=== PATIENT | male | born 1980 | race Caucasian/White ===

== ENCOUNTER 2016-12-26 21:38 | Observation (INO) ==
[2016-12-26] MEDS ORDERED: 0.9 % Sodium Chloride 1,000 ML IVC ONE (23:25)
[2016-12-26] MEDS ORDERED: 0.9 % Sodium Chloride 1,000 ML ONE (23:27)
[2016-12-26 23:52] LABS: Basophils # 0.1 K/mcL (0.0-0.2); Basophils % 0.9 %; Eosinophils # 0.1 K/mcL (0.0-0.6); Eosinophils % 0.8 %; Hematocrit 51.8 % (37.5-50.1); Hemoglobin 17.9 g/dL (12.9-16.9); Immature Granulocytes % 0.2 % (0-4); Lymphocytes # 3.7 K/mcL (0.6-4.6); Lymphocytes % 27.4 %; Mean Corpuscular HGB Conc 34.6 g/dL (31.6-35.5); Mean Corpuscular Hemoglobin 29.6 pg (28.0-33.3); Mean Corpuscular Volume 85.8 fL (83.0-100.0); Mean Platelet Volume 10.1 fL (9.4-12.4); Monocytes # 1.3 K/mcL (0.0-1.3); Monocytes % 9.4 %; Neutrophils # 8.2 K/mcL (1.6-8.9); Platelet Count 305 K/mcL (140-400); Red Blood Count 6.04 M/mcL (4.19-5.50); Red Cell Distribution Width 14.2 % (11.5-14.5); Segmented Neutrophils % 61.3 %
[2016-12-26 23:58] LABS: INR 1.1; Prothrombin Time 12.4 Seconds (9.4-12.1)
[2016-12-27 00:07] LABS: Alanine Aminotransferase 13 Units/L (0-55); Albumin 5.2 g/dL (3.5-5.0); Albumin/Globulin Ratio 1.4 (1.1-2.2); Alkaline Phosphatase 64 Units/L (38-126); Aspartate Amino Transferase 17 Units/L (5-34); BUN/Creatinine Ratio 13 (6-26); Bilirubin,Direct 0.3 mg/dL (0.0-0.5); Bilirubin,Indirect 0.4 mg/dL (0.0-1.2); Bilirubin,Total 0.7 mg/dL (0.2-1.2); Blood Urea Nitrogen 29 mg/dL (8-26); Calcium 11.1 mg/dL (8.6-10.8); Carbon Dioxide 24 mEq/L (19-29); Chloride 100 mEq/L (98-109); Creatine Kinase 127 Units/L (30-200); Globulin 3.7 g/dL (2.4-3.5); Glucose 89 mg/dL (70-99); Osmolality,Calculated 297 (280-300); Potassium 4.4 mEq/L (3.5-4.5); Sodium 141 mEq/L (136-145); Total Protein 8.9 g/dL (6.0-8.3); eGFR For African Americans 42 (> 60); eGFR For Non-African Americans 35 (> 60)
[2016-12-27] MEDS ORDERED: 0.9 % Sodium Chloride 1,000 ML IVC ONE (00:48)
[2016-12-27 01:03] LABS: Ethanol < 10 mg/dL (0-10)
[2016-12-27] MEDS ORDERED: *HR* LORazepam 2 MG/ML VIAL IVP ONE (01:21)
--- NOTE | 2016-12-27 02:13 | Emergency Department Note ---
Disposition Clinical Impression: ELIESER (acute kidney injury), Visual disturbance Altered mental status Qualifiers: Altered mental status type: unspecified Qualified Code(s): R41.82 - Altered mental status, unspecified Disposition: Admitted As Inpatient Condition: Fair General Adult HPI - General Chief complaint: ED Altered Mental Status Stated complaint: "disoriented and dehydrated" Time Seen by Provider: 12/26/16 22:57 Source: patient, family Limitations: no limitations Nursing Notes Reviewed: Yes Vital Signs Reviewed: Yes - History of Present Illness HPI Narrative: Patient presents with father for evaluation of decreased oral intake, decreased urinary output, dehydration, blurry vision. The patient is rather agitated and is upset because he was at another emergency department where the long wait caused him to leave without being seen. Patient's overall symptoms have been going on for some time and they are now concerned as his vision issues have not gotten any better during this amount of observation. His biggest concern is that she feels like he cannot see secondary to blurry vision. Patient is able to read fingers and arms length away without visual field deficit. Patient does have problems focusing his eyes on any one thing or a decent amount of time. His eyes are bloodshot without other abnormality. Patient denies any psychiatric history. Denies any recreational drug use. He says that he has felt like eating or drinking and has had intermittent stomach problems but has not had any current abdominal pain. States that he has not urinated in 3 days. Pain Scale: 0 - Related Data Previous Rx's Medication Instructions Recorded HYDROcodone/Acet 5/325 mg [[place] 1 tab PO Q6H PRN #10 tab 07/03/15 5-325 mg] Famotidine [Pepcid] 20 mg PO BID 30 Days 03/01/16 Sucralfate [Carafate] 1 gm PO QIDAC 30 Days 03/01/16 Allergies Allergy/AdvReac Type Severity Reaction Status Date / Time No Known Allergies Allergy Verified 07/03/15 10:25 Review of Systems: CONSTITUTIONAL: No weight loss, fever, chills, weakness or fatigue. HEENT: Eyes: Revision inability to concentrate Ears, Nose, Throat: No hearing loss, difficulty talking or unable to swallow. SKIN: No rash or itching. CARDIOVASCULAR: No chest pain, chest pressure or chest discomfort. No palpitations or edema. RESPIRATORY: No shortness of breath, cough or sputum. GASTROINTESTINAL: Decreased appetite over the last several days GENITOURINARY: No burning on urination or hematuria. NEUROLOGICAL: Blurry vision, inability to concentrate, MUSCULOSKELETAL: No muscle pain, back pain, joint pain or stiffness. Past Medical History - Past Medical History Medical history: Reports: GERD Psychiatric history: Reports: no psych history - Social History Smoking Status: Current every day smoker Smokeless Tobacco Status: No Alcohol use: Reports: none Drug use: Reports: marijuana Physical Exam General appearance: NAD, conversant Eyes: anicteric sclerae, moist conjunctivae; PERRL HENT: Atraumatic; oropharynx clear with moist mucous membranes and no mucosal ulcerations Neck: Normal inspection; Trachea midline; FROM, supple Lungs: CTA, with normal respiratory effort and no intercostal retractions CV: RRR, no MRGs Abdomen: Soft, non-tender; no rebound or gaurding Extremities: No peripheral edema or extremity lymphadenopathy Skin: Normal temperature; no rash, ulcers or lesions Psych: Flat affect with inability to focus eyes on one thing Neuro: alert and oriented to person, place and time - General Limitations: no limitations General appearance: alert, in no apparent distress - Expanded Neurological Exam Patient oriented to: Present: person, place, time Speech: Present: fluid speech Cranial nerves: EOM function (II, III, IV, ): Normal ( no specific deficit but unable to focus attention), facial sensation (V): Normal, facial palsy (VII) : Normal, gag reflex (IX): Normal, spinal accessory function (XI): Normal, tongue deviation (XII): Normal Cerebellar function: finger to nose: Normal, heel to napier: Normal Cerebellar function: normal gait Motor strength - LUE: 5/5 Motor strength - RUE: 5/5 Motor strength - LLE: 5/5 Motor strength - RLE: 5/5 Sensory exam upper extremity: light touch: Normal Sensory exam lower extremity: light touch: Normal Coma Scale Eye Opening: Spontaneous Coma Scale Motor Response: Obeys Commands Coma Scale Verbal Response: Oriented Coma Scale Total: 15 Course - Reevaluation(s) Reevaluation #1: Patient resting comfortably after Ativan given. Patient with acute kidney injury. He has received several liters of fluid and been unable to give us a urine sample at this point. CT scan shows mild urinary retention. Patient will need admitted for further evaluation and treatment. Vital Signs Temperature 97.8 F 12/26/16 21:54 Pulse Rate 93 12/26/16 21:54 Respiratory Rate 16 12/26/16 21:54 Blood Pressure 117/84 12/26/16 21:54 O2 Sat by Pulse Oximetry 99 12/26/16 21:54 Temperature 97.5 F L 12/27/16 05:04 Pulse Rate 82 12/27/16 05:04 Respiratory Rate 18 12/27/16 05:04 Blood Pressure 100/62 12/27/16 05:04 O2 Sat by Pulse Oximetry 97 12/27/16 05:04 Oxygen Delivery Oxygen Delivery Room Air Medical Decision Making - Medical Records Medical records reviewed: Yes I reviewed the patient's medical records. - Lab Data Lab results reviewed: Yes I reviewed the patient's lab results. Result diagrams: 12/26/16 23:43 12/26/16 23:43 Lab Results 12/26/16 12/26/16 12/26/16 Range/Units 23:43 23:43 23:43 WBC 13.3 H (4.3-11.1) K/mcL RBC 6.04 H (4.19-5.50) M/mcL Hgb 17.9 H (12.9-16.9) g/dL Hct 51.8 H (37.5-50.1) % MCV 85.8 (83.0-100.0) fL MCH 29.6 (28.0-33.3) pg MCHC 34.6 (31.6-35.5) g/dL RDW 14.2 (11.5-14.5) % Plt Count 305 (140-400) K/mcL MPV 10.1 (9.4-12.4) fL Immature Gran % 0.2 (0-4) % Seg Neutrophils % 61.3 % Lymphocytes % 27.4 % Monocytes % 9.4 % Eosinophils % 0.8 % Basophils % 0.9 % Neutrophils # 8.2 (1.6-8.9) K/mcL Lymphocytes # 3.7 (0.6-4.6) K/mcL Monocytes # 1.3 (0.0-1.3) K/mcL Eosinophils # 0.1 (0.0-0.6) K/mcL Basophils # 0.1 (0.0-0.2) K/mcL PT 12.4 H (9.4-12.1) Seconds INR 1.1 Sodium 141 (136-145) mEq/L Potassium 4.4 (3.5-4.5) mEq/L Chloride 100 (98-109) mEq/L Carbon Dioxide 24 (19-29) mEq/L BUN 29 H (8-26) mg/dL Creatinine 2.19 H (0.72-1.25) mg/dL Est GFR ( Amer) 42 L (> 60) Est GFR (Non-Af Amer) 35 L (> 60) BUN/Creatinine Ratio 13 (6-26) Glucose 89 (70-99) mg/dL POC Glucose (58-89) Calculated Osmolality 297 (280-300) Calcium 11.1 H (8.6-10.8) mg/dL Total Bilirubin 0.7 (0.2-1.2) mg/dL Direct Bilirubin 0.3 (0.0-0.5) mg/dL Indirect Bilirubin 0.4 (0.0-1.2) mg/dL AST 17 (5-34) Units/L ALT 13 (0-55) Units/L Alkaline Phosphatase 64 (38-126) Units/L Creatine Kinase 127 (30-200) Units/L Troponin I (0-0.03) ng/mL Serum Total Protein 8.9 H (6.0-8.3) g/dL Albumin 5.2 H (3.5-5.0) g/dL Globulin 3.7 H (2.4-3.5) g/dL Albumin/Globulin Ratio 1.4 (1.1-2.2) Ethyl Alcohol < 10 (0-10) mg/dL 12/26/16 12/27/16 Range/Units 23:43 00:04 WBC (4.3-11.1) K/mcL RBC (4.19-5.50) M/mcL Hgb (12.9-16.9) g/dL Hct (37.5-50.1) % MCV (83.0-100.0) fL MCH (28.0-33.3) pg MCHC (31.6-35.5) g/dL RDW (11.5-14.5) % Plt Count (140-400) K/mcL MPV (9.4-12.4) fL Immature Gran % (0-4) % Seg Neutrophils % % Lymphocytes % % Monocytes % % Eosinophils % % Basophils % % Neutrophils # (1.6-8.9) K/mcL Lymphocytes # (0.6-4.6) K/mcL Monocytes # (0.0-1.3) K/mcL Eosinophils # (0.0-0.6) K/mcL Basophils # (0.0-0.2) K/mcL PT (9.4-12.1) Seconds INR Sodium (136-145) mEq/L Potassium (3.5-4.5) mEq/L Chloride (98-109) mEq/L Carbon Dioxide (19-29) mEq/L BUN (8-26) mg/dL Creatinine (0.72-1.25) mg/dL Est GFR ( Amer) (> 60) Est GFR (Non-Af Amer) (> 60) BUN/Creatinine Ratio (6-26) Glucose (70-99) mg/dL POC Glucose 82 (58-89) Calculated Osmolality (280-300) Calcium (8.6-10.8) mg/dL Total Bilirubin (0.2-1.2) mg/dL Direct Bilirubin (0.0-0.5) mg/dL Indirect Bilirubin (0.0-1.2) mg/dL AST (5-34) Units/L ALT (0-55) Units/L Alkaline Phosphatase (38-126) Units/L Creatine Kinase (30-200) Units/L Troponin I 0.01 (0-0.03) ng/mL Serum Total Protein (6.0-8.3) g/dL Albumin (3.5-5.0) g/dL Globulin (2.4-3.5) g/dL Albumin/Globulin Ratio (1.1-2.2) Ethyl Alcohol (0-10) mg/dL - Radiology Data Radiology results reviewed: Yes I reviewed the patient's radiology results. - EKG Data EKG #1 EKG attestation: Yes I reviewed and interpreted this EKG. EKG results narrative: EKG shows sinus rhythm with ventricular rate of 67 bpm. LA interval 129. QRS 94. QTC 406. Patient has no significant ST elevations or depressions. Patient 's previous EKG without significant change at 02/29/16. Attestation Statement - Attestation Attestation: I, Ortiz Rene MD, personally evaluated this patient and discussed their management with the resident physician. I reviewed the resident's note and agree with the documented findings, medical decision making, and plan of care. 36-year-old male presents to the emergency department with a complaint of abdominal pain which has been going on for several months. He has had nausea and anorexia and weight loss. Patient reports that over the past several days he has had dizziness and generalized weakness. 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 He states that it was his first day on the job and he thinks that the catheter prior to him. Father reports that he has been acting strange and seems confused and disoriented. Patient reports that he has not urinated in the past 3 days. He has been vomiting and not keeping anything down. On examination patient is a well-developed thin male in no acute distress. He is alert and answers questions appropriately. Patient appears to be having visual hallucinations during my examination. He is very anxious. Mucous membranes are dry. Neck is supple with full range of motion. Breath sounds are clear and equal bilaterally. Heart regular rate and rhythm. Abdomen is soft with mild diffuse tenderness. Normal bowel sounds. No guarding or rebound tenderness. No CVA tenderness. No gross focal neurological deficits. Labs reviewed. Patient noted to have acute kidney injury with creatinine of 2.19. EKG shows a normal sinus rhythm with sinus arrhythmia, no acute ischemic changes. Chest x-ray negative. Head CT negative. CT of the abdomen and pelvis shows some lumbar disc disease but no acute intra-abdominal abnormality. The hospitalist, Dr. Kim, was consulted and accepted admission of the patient.
[2016-12-27] MEDS ORDERED: Acetaminophen 325 MG TABLET PO PRN (03:31)
[2016-12-27] MEDS ORDERED: Ondansetron 4 MG/2 ML VIAL IVP PRN (03:31)
--- NOTE | 2016-12-27 03:37 | Internal Med History&Physical ---
<Jaylon Beckford - Last Filed: 12/27/16 04:01> Date of Encounter: 12/27/16 Time of Encounter: 02:45 Assessment and Plan (1) ELIESER (acute kidney injury) Current visit: Yes Status: Acute - SCr 2.19 on admission, which is significantly worse compared to 0.96 on . - Likely pre-renal secondary to dehydration given reported poor oral intake and nausea/vomiting. - Patient also reports no urine output for 4 days. - CT A/P does not suggest significant urinary obstruction or hydronephorsis. - Will have one-time straight cath to obtain urine sample for UA, UDS and urine chemistry (e.g Na, Cr). - Continue hydration with IV NS. - Continue to monitor renal function, electrolytes and input/out. - May consider nephrology consult if renal failure persists. (2) Acute encephalopathy Current visit: Yes Status: Acute - Patient is hypersomnolent on the encounter and per patient's father, this is worse than his baseline. - Likely metabolic encephalopathy secondary to dehydration and/or malnutrition from poor oral intake related to nausea/vomiting. - Other differential include medications/drug (will obtain UDS), hypercapnia ( will check ABG), infection (CXR negative, will check UA). - Continue hydration with IV NS. - Continue to monitor. (3) Gastric pain Current visit: Yes Status: Acute - Chronic stomach pain. The associated nausea/vomiting likely contributes to dehydration resulting in ELIESER. - CT A/P found no significant intra-abdominal abnormality. - Will need to find out if patient got any EGD in the past once patient becomes more awake. - May consider scope (likely outpatient) as further work-up if patient did not have scope in the past. - Continue PPI. Also Zofran prn nausea. - NPO for now given patient is hypersomnolent. Consider resuming diet once patient is awake and passes bedside swallow evaluation. (4) GERD (gastroesophageal reflux disease) Current visit: Yes Status: Chronic - Continue PPI. Qualifiers: Esophagitis presence: esophagitis presence not specified Qualified Code(s) : K21.9 - Gastro-esophageal reflux disease without esophagitis (5) DVT prophylaxis Current visit: Yes Status: Acute - SQ heparin. Internal Medicine - H&P: HPI Chief complaint: Blurry vision, poor oral intake and no urine output Admitted From: Emergency Dept Plans for Post Hospital Care: Home History of present illness: Mr. 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 Patient was brought to ED by his father for blurry vision, poor oral intake and no urine output for 4 days. On the encounter, patient is arousable to verbal stimuli but falls in sleep quickly in the middle of conversation. Therefore much of history was obtained from patient's father at bedside. Per patient's father, patient has known problem alternating between sleep and awake in the past but current one is worse than his baseline and he thinks it's secondary to Ativan patient received in ED. Patient grew up with known stomach problem and has poor oral intake secondary to associated nausea/vomiting for several weeks. Patient's father is not sure if patient got scope in the past. Patient is currently taking Protonix at home and denies NSAIDs use. Patient denies chest pain/discomfort, abdominal pain, nausea, vomiting, fever, chills at this time. CT head in ED was limited due to motion but otherwise no acute abnormality. CXR found no acute cardiopulmonary abnormality. CT A/P found moderate central disc protrusion/ extrusion at L5-S1 but no hydronephrosis or significant urinary obstruction. Past Med Surg Social Fam HX - Past Medical History Source: obtained from family Medical history: GERD, other (central disc protusion at L5/S1) Psychiatric history: no psych history - Past Surgical History Surgical History: other (Excisional biopsy of right groin lymph node 04/02/14) - Social History Smoking Status: Current every day smoker Smokeless Tobacco Status: No Alcohol use: none Drug use: marijuana - Family History Grandfather Living Status: Hx Family Cardiac Disorders: Yes Internal Medicine - H&P: Meds HYDROcodone/Acet 5/325 mg [[place] 5-325 mg] 1 tab PO Q6H PRN #10 tab 07/03/15 [Rx ] Famotidine [Pepcid] 20 mg PO BID 30 Days 03/01/16 [Rx] Sucralfate [Carafate] 1 gm PO QIDAC 30 Days 03/01/16 [Rx] Allergies No Known Allergies Allergy (Verified 07/03/15 10:25) ROS unobtainable: due to mental status (Limited given patient is hypersomnolent (fall in sleep in the middle of coversation).) - Constitutional Vitals: Temp Pulse Resp BP Pulse Ox 97.8 F 93 16 117/84 99 12/26/16 21:54 12/26/16 21:54 12/26/16 21:54 12/26/16 21:54 12/26/16 21:54 General appearance: Present: A&O X 1 ([place] to self, month & year), no acute distress Exam: Hypersomnolent. Arousable to verbal stimuli but fall in sleep in the middle of conversation. - Head Head exam: Present: atraumatic, normocephalic - Eye Eye exam: Present: EOMI, PERRL, conjuntiva pink, sclera anicteric - Neck Neck exam general surgery: Present: supple, trachea midline. Absent: lymphadenopathy - Respiratory Respiratory exam: Present: CTAB. Absent: accessory muscle use, rales, rhonchi, wheezes - Cardiovascular Cardiovascular exam: Present: RRR, +S1, +S2. Absent: diastolic murmur, gallop, rubs, systolic murmur - GI/Abdominal GI/Abdominal exam: Present: normal bowel sounds, soft, tenderness (Diffuse), no peritoneal signs. Absent: distended - Extremities Exam Extremities exam: Present: warm, radial pulses palpable and symmetrical. Absent : calf tenderness, cyanotic, pedal edema - Neurological Exam Neurological exam: Present: strengths equal and symetr throughout. Absent: pronater drift, facial droop, speech deficit - Skin Skin exam: Present: dry, intact, warm Internal Med - H&P Results - Labs CBC & Chem 7: 12/26/16 23:43 12/26/16 23:43 <Vera Kim - Last Filed: 12/27/16 04:46> Date of Encounter: 12/27/16 Internal Medicine - H&P: HPI History of present illness: Mr. Patten is a 36 year old male All Systems PM: A 10-system review of systems was performed and is negative for pertinent findings except as documented above in the HPI. - Constitutional Vitals: Temp Pulse Resp BP Pulse Ox 97.8 F 93 16 117/84 99 12/26/16 21:54 12/26/16 21:54 12/26/16 21:54 12/26/16 21:54 12/26/16 21:54 Internal Med - H&P Results - Labs CBC & Chem 7: 12/26/16 23:43 12/26/16 23:43 - Attending Attestation I saw and examined pt. I have discussed with resident Dr Beckford regarding the management plan, agree with the documentation. Pt present to ER for disorientation and vision change. Pt has "chronic stomach" problem, with poor uptake, nausea, and vomiting in last week. No urine for three days. In ER, lab shows severe dehydration and ELIESER. Pt was given IVF in ER and his symptoms seems improved. CT Abd shows no hydronephrosis, no SBO. Will cont hydrate pt and supportive management, follow up renal function. May consider Nephro and/or GI consult if symptoms persist.
[2016-12-27] MEDS ORDERED: 0.9 % Sodium Chloride 1,000 ML IVC SCH (03:45)
[2016-12-27 05:04] VITALS: BP 100/62
[2016-12-27 05:24] LABS: ABG HCO3 22.3 mEQ/L (21-27); ABG Oxygen Saturation 98 % (95-98); ABG PCO2 36 mmHg (35-45); ABG PO2 106 mmHg (85-104); ABG TCO2 23.4 mEq/L (20-26)
[2016-12-27 05:29] LABS: Blood Gas FiO2 21 %
--- NOTE | 2016-12-27 05:59 | Discharge Summary ---
Date of Encounter: 12/27/16 Time of Encounter: 05:30 - Discharge Diagnosis (1) ELIESER (acute kidney injury) Priority: Primary Status: Acute (2) Acute encephalopathy Priority: Secondary Status: Acute (3) Gastric pain Priority: Secondary Status: Acute (4) GERD (gastroesophageal reflux disease) Priority: Secondary Status: Chronic Qualifiers: Esophagitis presence: esophagitis presence not specified Qualified Code(s) : K21.9 - Gastro-esophageal reflux disease without esophagitis - Discharge Medications Home Medications: HYDROcodone/Acet 5/325 mg [[place] 5-325 mg] 1 tab PO Q6H PRN #10 tab 07/03/15 [Rx ] Famotidine [Pepcid] 20 mg PO BID 30 Days 03/01/16 [Rx] Sucralfate [Carafate] 1 gm PO QIDAC 30 Days 03/01/16 [Rx] Allergies/Adverse Reactions: Allergies No Known Allergies Allergy (Verified 07/03/15 10:25) Date of admission: 12/27/16 03:32 Primary care physician: PCP NONE Consults: 12/27/16 05:07 Consult to Nutrition [CONS] Routine Comment: Consulting Provider: NUTRITION Reason for Dietary Consult: MST Score - Patient Status Disposition: Left Against Medical Advice Condition: Fair Functional capacity at discharge: independent ambulation Overall status at discharge: patient is not back to baseline - Discharge Instructions Follow Up With: NONE,PCP [Primary Care Provider] - Hospital course: Mr. Patten is a 36 year old male admitted for ELIESER and acute encephalopathy on . Patient was hypersomnolent in ED but became more awake once on the floor. I was notified by nurse that patient wants to smoke outside and refuses nicotine patch. On my encounter, patient is agitated and keeps saying F-words. I explained to patient and his father at bedside that our hospital policy does not allow patient to smoke outside and come back. If he goes outside smoking and wants to come back, he needs to go through another admission via ED again. Patient seemed to be upset about that and stated that no one can stop him from leaving. I offered nicotine patch or gum for his nicotine craving but patient rudely declined the offer with F-words. I explained to him potential bad outcome including if he decides leave AGAINST MEDICAL ADVICE. Patient's father also explained that to patient and patient stated that he is aware of that and still insisted to leave. Per patient's father, patient is currently oriented and can make decision by patient himself. I recommended patient's father that patient needs to follow up with his PCP or even come back to ED if patient decides to leave AMA. Patient's father verbalized the understanding. Attending Dr. Kim tried to explained the situation with patient and his father again and patient can tell use he is in a [facility]. Patient got highly agitated and almost combative as patient abruptly pulled out his IV access. I asked patient to sign the leave AGAINST MEDICAL ADVICE form but patient rudely refused and walked straight out of room. Patient's father did sign the AMA form before patient left. - Time Spent with Patient Total time spent providing and/or coordinating discharge services: Greater than 30 minutes - Constitutional Vitals: Temp Pulse Resp BP Pulse Ox 97.5 F L 82 18 100/62 97 12/27/16 05:04 12/27/16 05:04 12/27/16 05:04 12/27/16 05:04 12/27/16 05:04
[2016-12-27] MEDS ORDERED: *HR* Heparin 5,000 UNIT/ML VIAL SQ SCH (06:00)
[2016-12-27] MEDS ORDERED: Pantoprazole 40 MG VIAL IVP SCH (09:00)
--- NOTE | 2017-01-01 17:30 | Electrocardiograph Report ---
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
== END 2016-12-27 05:50 | disposition left against medical advice (07) ==
LOC: EMEROO 21:38 → 2ANU 21:38
PROVIDERS: ADMIT Internal Medicine; ATTEND Internal Medicine